=== PATIENT | male | born 1980 | race Caucasian/White ===

== ENCOUNTER 2023-09-16 10:22 | Emergency (ER) | payer OTHER ==
[2023-09-16 11:28] VITALS: PULSE 88; RESP 16; TEMP 97.1
--- NOTE | 2023-09-16 11:33 | XRAY ---
CLINICAL HISTORY: pain TECHNIQUE: X-ray right foot AP, oblique, and lateral 3 views. COMPARISON: None FINDINGS: Medial malleolar osteophyte. Proximal navicular margin bony spurs. Calcaneal plantar and dorsal spurs, more obvious is plantar spur. Normal bone mineral density was noted. A radiological examination of foot demonstrates no lytic or sclerotic bone lesion. No definite fracture is visible. The cortical margins of the osseous structures are within normal limits. Normal metatarsophalangeal and interphalangeal joint spaces. Articular margins are intact. No focal abnormality seen in the great toe. Soft tissues appear unremarkable. IMPRESSION: No acute osseous abnormality seen in the foot. Calcaneal plantar and dorsal spurs, more obvious is plantar spur. Mild degenerative changes noted with medial malleolar osteophyte and proximal navicular margin bony spurs. DISCLAIMER:A subtle bone abnormality or fracture may not be readily apparent on x-rays, thus clinical correlation and further imaging including follow up CT, MRI, or follow up x-rays are advised as needed. Electronically Signed by: Cyndi Grimaldo MD. (09/16/2023 11:29:33 EST)
--- NOTE | 2023-09-16 11:40 | ERPHSYRPT ---
- History of Present Illness Time Seen by Provider: 09/16/23 11:17 Source: patient Exam Limitations: no limitations Patient Subjective Stated Complaint: Pt states "I was stepping over a pipe and my left foot slipped in mud and my right foot when I came down something happe valentino under it and I cannot put any weight on my right foot at all." Triage Nursing Assessment: PT presented alert and oriented X 3, skin pwd. Pt ambulates with a limp. Pt has tenderness noted to dorsal right foot. Physician History: Pt states yesterday at work([employer]) he stepped off a pipe into mud with pain in his right heel; denies numbness of his right foot, pt is ambulatory. Allergies/Adverse Reactions: Penicillins Allergy (Severe, Verified 09/16/23 10:43) anaphylaxis Home Medications: No Reportable Medications [No Reported Medications] 09/16/23 [History] Hx Tetanus, Diphtheria Vaccination/Date Given: No Hx Influenza Vaccination/Date Given: No Hx Pneumococcal Vaccination/Date Given: No Immunizations Up to Date: No Travel Risk - International Travel Have you traveled outside of the country in past 3 weeks: No - Coronavirus Screening Are you exhibiting any of the following symptoms?: No Close contact with a COVID-19 positive Pt in past 14-21 Days: No - Vaccine Status Have you recieved a Covid-19 vaccination: No - Review of Systems Musculoskeletal: Other (right heel pain since yesterday) Neurological: No Sensory Changes - Past Medical History Pertinent Past Medical History: No - Past Surgical History Past Surgical History: Yes Other Surgical History: left ear - Social History Smoking Status: Never smoker Exposure to second hand smoke: Yes Drug Use: none Patient Lives Alone: No - Nursing Vital Signs Nursing Vital Signs: Initial Vital Signs Temperature 98.6 F 09/16/23 10:33 Pulse Rate 85 09/16/23 10:33 Respiratory Rate 20 09/16/23 10:33 Blood Pressure 178/106 09/16/23 10:33 O2 Sat by Pulse Oximetry 97 09/16/23 10:33 Pain Scale Pain Intensity 2 - Physical Exam General Appearance: alert Hips Exam: right: normal range of motion Legs Exam: right leg: normal range of motion Knees Exam: right knee: normal range of motion Ankle Exam: right ankle: normal range of motion Foot Exam: right foot: normal range of motion, soft tissue tenderness (mild tenderness over right heel) Neuro/Tendon Exam: normal sensation Mental Status Exam: alert, cooperative Skin Exam: warm, dry SpO2 Interpretation: normal SpO2: 97 O2 Delivery: Room Air - Course Nursing assessment & vital signs reviewed: Yes - Radiology Exams Right Foot X-ray Interpretation: Interpreted by me, No Fracture Ordered Tests: Active Orders 24 hr Category Date Time Status FOOT (MINIMUM 3 VIEWS) Stat Exams 09/16/23 10:44 Completed - Progress Progress: unchanged Counseled pt/family regarding: diagnosis, need for follow-up, rad results Medical Desision Making - Diagnostic Testing Diagnostic test were ordered, analyzed, and reviewed by me: Yes Radiological Interpretation: Interpreted by me - Departure Departure Disposition: Home Clinical Impression: Strain of right foot Condition: Stable Critical Care Time: No Referrals: NILSON BURNS, RABBLER [Primary Care Provider] - Follow up/PCP as directed Instructions: Foot Sprain (DC) Additional Instructions: Use crutches for the next 2 weeks. No weight bearing on right foot for the next 2 days. Elevate right foot for 24 hours above heart level. Aly wrap to right foot for the next 2 days. Take ibuprofen as needed for pain. Forms: Work/School Release Form
[2023-09-16 12:03] VITALS: BP 160/94; O2SAT 98
[2023-09-16] MEDS ORDERED: MOTRIN 600 MG ONE (12:07)
[2023-09-16] MEDS: MOTRIN 600 MG PO ONE (12:08)
== END 2023-09-16 12:18 | disposition home or self-care (01) ==
LOC: ED 10:22
DX: S96.911A Strain of unspecified muscle and tendon at ankle and foot level, right foot, initial encounter (principal); X50.0XXA Overexertion from strenuous movement or load, initial encounter; Y92.64 Mine or pit as the place of occurrence of the external cause; Y99.0 Civilian activity done for income or pay; Z28.310 Unvaccinated for COVID-19
CPT/HCPCS: 73630; 99283; A9270-GY